=== PATIENT | female | born 1945 | race Caucasian/White ===

== ENCOUNTER → 2023-11-17 12:11 | Outpatient (REF) | payer MEDICARE, OTHER, SELFPAY ==
[2023-11-17 14:38] LABS: ALT (SGPT) 21 U/L (0-35); AST (SGOT) 28 U/L (14-36); Albumin 3.9 g/dl (3.5-5.0); Alkaline Phosphatase 44 U/L (38-126); Blood Urea Nitrogen 24 mg/dl (7-17); Calcium 9.2 mg/dl (8.4-10.2); Carbon Dioxide 31 mmol/L (22-30); Chloride 100 mmol/L (98-107); Glucose 89 mg/dl (70-99); Potassium 4.6 mmol/L (3.5-5.1); Sodium 137 mmol/L (135-145); Total Bilirubin 0.5 mg/dl (0.2-1.3); eGFR 58.75
[2023-11-17 14:45] LABS: Vitamin D, 25-OH*** 82.7 ng/mL (30-80)
== END ==
LOC: REG 12:11
PROVIDERS: ATTENDING PHYSICIAN Internal Medicine; FAMILY PHYSICIAN Internal Medicine
DX: M81.0 Age-related osteoporosis without current pathological fracture (principal); Z51.81 Encounter for therapeutic drug level monitoring
CPT/HCPCS: 36415; 80053; 82306

== ENCOUNTER 2024-11-18 12:52 | Emergency (ER) | payer MEDICARE, OTHER, SELFPAY ==
[2024-11-18 12:59] VITALS: BMI 19.1
[2024-11-18 13:00] VITALS: BP 143/85
[2024-11-18 13:02] VITALS: BP 143/85
--- NOTE | 2024-11-18 13:16 | ED.GENMED ---
History of Present Illness
General
Chief Complaint: Headache
Source: patient
Exam Limitations: none
Time Seen by Provider: 11/18/24 13:01
History of Present Illness
History of Present Illness:
Patient's suddenly this morning. Shortly after she developed sudden left-sided visual loss with left-sided headache. Symptoms lasted about 5 minutes. They have self resolved. No history of same. No other neurologic symptoms.
Past History
Past History
ED Past Medical History: HTN and Psychiatric (Anxiety)
ED Past Surgical History: Other (Thyroidectomy)
Social History
Tobacco: Non-smoker
Personal:
Review of Systems
Review of Systems
All Other Systems: Not applicable
Respiratory: Reports no symptoms
Cardiac: Reports no symptoms
Phy Exam
Physical Exam
Physical Exam:
GENERAL: Alert and oriented in no apparent distress
EYE: Orbits normal. Extraocular muscles intact
NECK: Supple, no carotid bruits
ENT: Pharynx without erythema
CARDIAC: Regular rate and rhythm without any obvious murmurs.
LUNGS: Clear breath sounds,normal
ABDOMEN: Soft, without focal tenderness or distention
NEUROLOGICAL: Alert and oriented , cranial nerves II through XII intact. Speech normal. [id number]-[id number] normal. Eye confrontation normal.
SKIN: Warm and dry, no rash or lesion, no discoloration, skin intact.
MUSCULOSKELETAL: No edema,no deformity.Good color
PSYCH: Cooperative. Mildly anxious and upset
Course
Orders/Labs/Results
Orders:
Orders
11/18/24 13:15
Electrocardiogram (*1) Stat
Reason for Study: Other
Other Reason for Exam: neuro symptoms
CT Head & Neck Angio W/wo IV Urgent
Comment:
Reason For Exam: Left-sided headache with transient left-sided visu
Cardiac Monitoring- Treatment ONCE
EKG- Treatment ONCE
IV Insert/Care/Rem.- Treatment PRN
0.9% Sodium Chloride 500 ml [Nss] 500 ml IV BOLUS
Pulse Ox/cont/shift [RESP] Stat
Quantity: 1
11/18/24 13:55
Basic Metabolic Panel Urgent
Complete Blood Count/With Diff Urgent
Erythrocyte Sed Rate Urgent
11/18/24 16:18
Aspirin Chewable [Low Strength Aspirin] 81 mg PO NOW STA
Abnormal Lab Results
11/18/24
13:55
MPV 11.4 H fL
(7.4-10.4)
Absolute Monos (auto) 0.7 H 10^3/uL
(0.1-0.6)
ESR 24 H mm/hour
(0-20)
BUN 21 H mg/dl
(7-17)
11/18/24 13:55
11/18/24 13:55
Vital Signs
Initial and Last Documented VS:
Initial Vital Signs
Temp Pulse Resp Pulse Ox
98.2 F 80 18 100
11/18/24 12:58 11/18/24 12:58 11/18/24 12:58 11/18/24 12:58
Last Documented Vital Signs
Temp Pulse Resp BP Pulse Ox
98.2 F 100 15 141/74 100
11/18/24 12:58 11/18/24 15:50 11/18/24 15:50 11/18/24 15:50 11/18/24 15:50
MDM/Problems Addressed
Differential Diagnosis Includes:
Chronologically suspect a ocular migraine stress related related to her 's this morning. However with unilateral symptoms visual loss will check sed rate CT angio. Currently with a benign exam
*Radiology
Radiology exam reviewed: radiology read reviewed (No acute findings on CT)
*Pulse Oximetry
Patient hypoxic: no
*Critical Care Note
Total Time (30-74mins, 75-104mins- exclusive of procedures): Not Applicable
Data Reviewed
Review of Other/Old Records Reveals: Labs, Records and Testing
Update Note
Update Note:
CT scan negative. No further episodes. Chronologically very to her stress from her dying today. Minimal ESR elevation. Do not feel temporal arteritis is in the differential at this time given the total brief resolution of symptoms with
no temporal pain headache or other neurologic symptoms. I will recommend a baby aspirin per day for completeness and follow-up
ED Attending Note
-
Portions of this chart may have been created with voice recognition software.� Occasional wrong word or��sound alike� substitutions may have occurred due to the inherent limitations of voice recognition software.
Discharge Plan
Departure
Patient Disposition: Home (Routine Discharge)
Date of Disposition: 11/18/24
Time of Disposition: 16:19
Patient with high blood pressure during this ER visit?: Yes
Discharge Problem:
Transient headache/visual changes
Instructions: Headache, Adult (DC), BLOOD PRESSURE
Prescriptions:
No Action
levothyroxine [Synthroid] 75 mcg Tablet
75 mcg PO SUMOTUWETHSA
citalopram 20 mg Tablet
20 mg PO DAILY
simvastatin 20 mg Tablet
20 mg PO HS
ascorbic acid (vitamin C) [Vitamin C] 500 mg Tablet
500 mg PO DAILY
docusate sodium 100 mg Capsule
100 mg PO DAILY
gvvkdycifew-apttkcens-ipi C-Mn [Glucosamine Chondroitin MaxStr] 500-400 mg Capsule
1 cap PO DAILY
calcium citrate-vitamin D3 315 mg-5 mcg (200 unit) Tablet
2 tab PO BID
aspirin 81 mg Tablet,Chewable
81 mg PO DAILY Qty: 0 0RF
pantoprazole 40 mg Tablet,Delayed Release (Dr/Ec)
40 mg PO DAILY Qty: 30 0RF
Referrals:
NONE,* [Family Provider] -
Activity Restrictions/Additional Instructions:
Recommend a baby aspirin per day
Call your senior systems analyst for follow-up
Return with any recurrent episodes of unusual headache any visual changes or other neurologic symptoms
Interventions
Interventions:
*Risk Screen - Suicide Last Done: 11/18/24 12:57
*General Assessment Last Done: 11/18/24 12:57
*Neglect/Abuse Screening Last Done: 11/18/24 12:57
*ED COVID-19 Vaccine History Last Done: 11/18/24 12:57
ED- Neurological Assessment Last Done: 11/18/24 12:59
Discharge Date and Time
Print Language: GEORGIAN
[2024-11-18] MEDS: NSS 500 IV (13:47)
[2024-11-18 14:00] VITALS: BP 143/80
[2024-11-18 14:11] LABS: % Basophils 0.5 % (0-2); % Eosinophils 0.4 % (0-6); % Immature Granulocytes 0.4 % (0-0.5); % Lymphocytes 22.6 % (20.5-51.1); % Monocytes 8.2 % (1.7-9.3); % Neutrophils 67.9 % (42.2-75.2); Absolute Lymphocytes 1.8 10^3/uL (1.2-3.4); Absolute Monocytes 0.7 10^3/uL (0.1-0.6); Absolute Neutrophils 5.4 10^3/uL (1.4-6.5); Hematocrit 38.3 % (37.0-47.0); Hemoglobin 12.7 g/dL (12.0-16.0); Mean Corp Hgb Conc. 33.2 g/dL (33.0-37.0); Mean Corpuscular Hgb 29.3 pg (27.0-31.0); Mean Corpuscular Volume 88.2 fL (81.0-99.0); Mean Platelet Volume 11.4 fL (7.4-10.4); Nucleated Red Blood Cells % 0 %; Platelet Count 211 10^3/uL (130-400); Red Blood Cell Count 4.34 10^6/uL (4.20-5.40); Red Cell Dist. Width 12.6 % (11.5-14.5)
[2024-11-18 14:21] LABS: Blood Urea Nitrogen 21 mg/dl (7-17); Calcium 9.9 mg/dl (8.4-10.2); Carbon Dioxide 24 mmol/L (22-30); Chloride 107 mmol/L (98-107); Estimated Creatinine Clearance 37 ml/min; Glucose 86 mg/dl (70-99); Sodium 139 mmol/L (135-145); eGFR 58.39
[2024-11-18 14:49] LABS: Erythrocyte Sed Rate 24 mm/hour (0-20)
[2024-11-18 15:00] VITALS: BP 137/77
[2024-11-18 15:50] VITALS: BP 141/74
[2024-11-18 16:00] VITALS: BP 124/99
[2024-11-18] MEDS: LOW STRENGTH ASPIRIN 81 MG PO (16:30)
== END 2024-11-18 16:35 | disposition home or self-care (01) ==
LOC: EMR 12:52
PROVIDERS: EMERGENCY PHYSICIAN Emergency Medicine
DX: R51.9 Headache, unspecified (principal); H53.122 Transient visual loss, left eye; Z63.4 Disappearance and death of family member; I10 Essential (primary) hypertension; F41.9 Anxiety disorder, unspecified; Z88.8 Allergy status to other drugs, medicaments and biological substances
CPT/HCPCS: 99285; 96361; 96360; 94760; 70496; 70498; 80048; 85025; 85652; 93005; Q9967

== ENCOUNTER → 2025-03-01 14:08 | Outpatient (REF) | payer MEDICARE, OTHER, SELFPAY | LOC: PAVMRI 14:08 | PROVIDERS: ATTENDING PHYSICIAN Otolaryngology; FAMILY PHYSICIAN Internal Medicine | DX: H90.A22 Sensorineural hearing loss, unilateral, left ear, with restricted hearing on the contralateral side (principal) | CPT/HCPCS: 70553; A9575 ==

== ENCOUNTER → 2025-07-12 11:11 | Outpatient (REF) | payer MEDICARE, OTHER, SELFPAY | LOC: RAD 11:11 | PROVIDERS: ATTENDING PHYSICIAN Internal Medicine; FAMILY PHYSICIAN Internal Medicine | DX: M81.0 Age-related osteoporosis without current pathological fracture (principal) | CPT/HCPCS: 77080 ==

== ENCOUNTER → 2025-07-24 11:08 | Outpatient (REF) | payer MEDICARE, OTHER, SELFPAY ==
[2025-07-24 15:26] LABS: ALT (SGPT) 29 U/L (0-35); AST (SGOT) 30 U/L (14-36); Albumin 4.4 g/dl (3.5-5.0); Alkaline Phosphatase 44 U/L (38-126); Blood Urea Nitrogen 18 mg/dl (7-17); Calcium 9.7 mg/dl (8.4-10.2); Carbon Dioxide 30 mmol/L (22-30); Chloride 102 mmol/L (98-107); Glucose 93 mg/dl (70-99); Potassium 4.0 mmol/L (3.5-5.1); Sodium 138 mmol/L (135-145); Total Protein 7.3 g/dl (6.3-8.2); eGFR 58.02
[2025-07-24 15:34] LABS: Vitamin D, 25-OH*** 61.8 ng/mL (30-80)
== END ==
LOC: REG 11:08
PROVIDERS: ATTENDING PHYSICIAN Internal Medicine; FAMILY PHYSICIAN Internal Medicine
DX: M81.0 Age-related osteoporosis without current pathological fracture (principal)
CPT/HCPCS: 36415; 80053; 82306